=== PATIENT | male | born 1970 | race African-American/Black ===

== ENCOUNTER 2020-05-11 17:34 | Emergency (ER) | payer SELFPAY ==
[~2020-05-11] VITALS: Ht 170.2 cm; Wt 67.1 kg
--- NOTE | 2020-05-11 19:28 | PHYS DOC ---
Past History Past Medical History: Asthma, Bronchitis, Other Additional Past Medical Histor: SEASONAL ALLERGIES Past Surgical History: No Surgical History Additional Smoking Information: PACK/DAY Alcohol Use: Occasionally Adult General Chief Complaint Chief Complaint: COUGH HPI HPI Patient is a age year old male who presents with complaint of cough for 1 month. The patient states that he started getting cough while he was incarcerated. Notes that he has history of asthma and recurrent bronchitis. States that his cough has been productive of whitish phlegm. Denies any fevers. He states that he was placed on prednisone and albuterol while he was incarcerated. Was released 2 weeks ago. Notes that his symptoms have been persistent despite treatment. He denies chest pain or abdominal pain currently. The patient states he did go to an urgent care earlier today and had COVID-19 testing with results pending currently. Denies loss of sense of taste or smell, decreased appetite, body aches, or chills. Review of Systems Review of Systems Constitutional: Denies fever or chills [] Eyes: Denies change in visual acuity, redness, or eye pain [] HENT: Denies nasal congestion or sore throat [] Respiratory: Productive cough, wheezing [] Cardiovascular: Denies chest pain or edema [] GI: Denies abdominal pain, nausea, vomiting, bloody stools or diarrhea [] : Denies dysuria or hematuria [] Musculoskeletal: Denies back pain or joint pain [] Integument: Denies rash or skin lesions [] Neurologic: Denies headache, focal weakness or sensory changes [] All other systems were reviewed and found to be within normal limits, except as documented in this note. Allergies Allergies Allergies Coded Allergies Type Severity Reaction Last Updated Verified No Known Drug Allergies 05/11/20 No Physical Exam Physical Exam Constitutional: Well developed, well nourished, no acute distress, non-toxic appearance. [] HENT: Normocephalic, atraumatic, bilateral external ears normal, oropharynx moist, no oral exudates, nose normal. [] Eyes: PERRLA, EOMI, conjunctiva normal, no discharge. [] Neck: Normal range of motion, no tenderness, supple, no stridor. [] Cardiovascular:Heart rate regular rhythm, no murmur [] Lungs & Thorax: No accessory muscle usage, mild prolonged expiratory phase, expiratory wheezing bilaterally. [] Abdomen: Bowel sounds normal, soft, no tenderness, no masses, no pulsatile masses. [] Skin: Warm, dry, no erythema, no rash. [] Back: No tenderness, no CVA tenderness. [] Extremities: No tenderness, no cyanosis, no clubbing, ROM intact, no edema. [] Neurologic: Alert and oriented X 3, normal motor function, normal sensory function, no focal deficits noted. [] Current Patient Data Vital Signs Vital Signs Date Time Temp Pulse Resp B/P (MAP) Pulse Ox O2 Delivery O2 Flow Rate FiO2 05/11/20 17:50 98.4 84 20 122/100 (107 96 Room Air Lab Results Not performed EKG EKG Not performed [] Radiology/Procedures Radiology/[place] [address] IMAGING REPORT Signed PATIENT: BERNADETTE HSIEH ACCOUNT: [id number] : 1970 LOCATION: ER AGE: 49 SEX: M EXAM STATUS: REG ER ORD. PHYSICIAN: LAMAR PARKER MD REASON: cough PROCEDURE: PORTABLE CHEST 1V INDICATION: Reason: cough / Spl. Instructions: / History: COMPARISON: None. FINDINGS: Frontal views of chest obtained. Hyperexpanded lungs without definite focal airspace consolidation or pulmonary edema. Cardiac silhouette is unremarkable. IMPRESSION: * No focal airspace consolidation or edema. Electronically signed by: Skyler Christian MD (05/11/2020 8:04 PM) [id number] DICTATED AND SIGNED BY: SKYLER CHRISTIAN MD DATE: 05/11/202003 CC: LAMAR PARKER MD; PCP,NO ~ [] Course & Med Decision Making Course & Med Decision Making Pertinent Labs and Imaging studies reviewed. (See chart for details) Patient has had a prior COVID test taken before coming to the emergency department. A COVID test thus was not collected in the emergency department. The patient's chest x-ray shows no consolidating pneumonia. Given chronicity of symptoms however, I do feel that patient will need to be placed on antibiotic therapy for treatment of possible bacterial bronchitis. Patient prescribed albuterol, azithromycin, and prednisone taper. Advise follow-up with primary doctor in the next 3 to 5 days for reevaluation and return to the emergency department for any worsening symptoms. Patient voiced understanding and agreement with treatment plan. ILamar MD, wore N 95 mask, eye protection, gown and gloves during this patient encounter. [] Dragon Disclaimer Dragon Disclaimer This electronic medical record was generated, in whole or in part, using a voice recognition dictation system. Departure Departure: Impression: Primary Impression: Bronchitis Disposition: HOME/RESIDENCE PRIOR TO ADM Condition: STABLE Referrals: PCP,NO (PCP) Patient Instructions: Acute Bronchitis Additional Instructions: Follow-up with your primary care physician in the next 3 to 5 days for reevaluation. Return to the emergency department for any worsening symptoms. Scripts Azithromycin (AZITHROMYCIN TABLET) 250 Mg Tablet 1 PKG PO UD for 5 Days, #6 TAB 0 Refills 2 the first day followed by 1 for days 2-5 Prov: LAMAR PARKER MD 05/11/20 Prednisone (PREDNISONE) 10 Mg Tablet 10 MG PO UD for PREDNISONE TAPER, #39 TAB 0 Refills Take 3 tablets by mouth twice a day for 3 days, then take 2 tablets by mouth twice a day for 3 days, then take 1 tablet by mouth twice a day for 3 days, then take 1 tablet by mouth daily x 3 days, then stop. Prov: LAMAR PARKER MD 05/11/20 Albuterol Sulfate (PROAIR HFA INHALER) 8.5 Gm Hfa.aer.ad 2 PUFF IH PRN Q4-6HRS PRN for wheezing for 21 Days, #1 INHALER 0 Refills Prov: LAMAR PARKER MD 05/11/20 Justification of Admission: Justification of Admission: Justification of Admission Dx: N/A LAMAR PARKER MD May 11, 2020 19:28
--- NOTE | 2020-05-11 20:07 | RAD ---
INDICATION: Reason: cough / Spl. Instructions: / History: COMPARISON: None. FINDINGS: Frontal views of chest obtained. Hyperexpanded lungs without definite focal airspace consolidation or pulmonary edema. Cardiac silhouette is unremarkable. IMPRESSION: * No focal airspace consolidation or edema. Electronically signed by: Cristopher Castro MD (05/11/2020 8:04 PM) [id number]
[2020-05-11 20:32] VITALS: BP 140/77
[2020-05-11] MEDS ORDERED: ALBU2.5V8 IH (20:38)
[2020-05-11] MEDS ORDERED: PRED-220 PO (20:38)
[2020-05-11] MEDS ORDERED: AZIT250T6 PO (20:38)
== END 2020-05-11 20:45 | disposition home or self-care (01) ==
LOC: ER 17:34
DX: J45.909 Unspecified asthma, uncomplicated (principal); F17.200 Nicotine dependence, unspecified, uncomplicated
CPT/HCPCS: 71045; 99285-25

== ENCOUNTER 2020-10-07 10:23 | Emergency (ER) | payer SELFPAY ==
[~2020-10-07] VITALS: Ht 170.2 cm; Wt 57.3 kg
[~2020-10-07 10:23] MED LIST: ALBU2.5V8 IH; AZIT250T6 PO; PRED-220 PO
[2020-10-07 10:33] VITALS: BP 117/76
--- NOTE | 2020-10-07 12:13 | RAD ---
CT Head W/O Contrast: History: nose pain Comparison: none Axial images were obtained without contrast. The rivera and white matter appears normal and symmetrical for the patients age. There is no mass effect, extraaxial fluid collections or hydrocephalus. There is no gross bleed. There is no focal loss of rivera-white matter distinction to suggest acute ischemia, i.e. stroke. Impression: No acute findings. PQRS Compliance Statement: One or more of the following individualized dose reduction techniques were utilized for this examination: 1. Automated exposure control 2. Adjustment of the mA and/or kV according to patient size 3. Use of iterative reconstruction technique CT maxillofacial without contrast History: Nose pain Axial helical images of the face were obtained without contrast. Axial and coronal reconstruction was performed. The nasal septum is mostly midline. The ostiomeatal complexes are occluded bilaterally. There is mucosal thickening present in the bilateral maxillary sinuses and in the anterior ethmoid air cells. Minimal thickening in the frontal sinuses is also noted.. Mastoid air cells are well aerated and the petrous apices are pneumatized.. The visualized osseous structures appear intact. The orbits appear normal. There is asymmetric mucosal thickening in the inferior left turbinate Impression: Extensive mild sinus mucosal thickening with asymmetric thickening of the left inferior turbinate. Recommend correlation with the clinical exam.. PQRS Compliance Statement: One or more of the following individualized dose reduction techniques were utilized for this examination: 1. Automated exposure control 2. Adjustment of the mA and/or kV according to patient size 3. Use of iterative reconstruction technique
[2020-10-07] MEDS ORDERED: AMOX1TAB61 PO (12:48)
--- NOTE | 2020-10-07 12:50 | PHYS DOC ---
Past History Past Medical History: Asthma, Bronchitis, Other Additional Past Medical Histor: SEASONAL ALLERGIES Past Surgical History: No Surgical History Alcohol Use: Occasionally General Adult EDM: Chief Complaint: FACE PROBLEM HPI: HPI: Patient is a [age] year old [sex] who presents with [] Review of Systems: Review of Systems: Constitutional: Denies fever or chills Eyes: Denies change in visual acuity HENT: Denies nasal congestion or sore throat Respiratory: Denies cough or shortness of breath Cardiovascular: Denies chest pain or edema GI: Denies abdominal pain, nausea, vomiting, bloody stools or diarrhea : Denies dysuria Musculoskeletal: Denies back pain or joint pain Integument: Denies rash Neurologic: Denies headache, focal weakness or sensory changes Endocrine: Denies polyuria or polydipsia Lymphatic: Denies swollen glands Psychiatric: Denies depression or anxiety Allergies: Allergies: Allergies Coded Allergies Type Severity Reaction Last Updated Verified No Known Drug Allergies 05/11/20 No Physical Exam: PE: Constitutional: Well developed, well nourished, no acute distress, non-toxic appearance. HENT: Normocephalic, atraumatic, Eyes: EOMI, conjunctiva normal, no discharge. Neck: Normal range of motion, supple, Cardiovascular: S1/2 present, regular rhythm Lungs & Thorax: Speaking in full sentences, bilateral equal chest rise, no tachypnea or increased work of breathing Abdomen: soft, no tenderness, Skin: Warm, dry, no erythema, no rash. [] Back: No tenderness, no CVA tenderness. [] Extremities: No tenderness, no cyanosis, no lower extremity edema Neurologic: Alert and oriented X 3, normal motor function, normal sensory function, no focal deficits noted. [] Psychologic: Affect normal, judgement normal, mood normal. [] Current Patient Data: Vital Signs: Vital Signs Date Time Temp Pulse Resp B/P (MAP) Pulse Ox O2 Delivery O2 Flow Rate FiO2 10/07/20 10:33 97.6 86 18 117/76 (90) 100 Room Air EKG: EKG: [] Radiology/Procedures: Radiology/Procedures: IMAGING REPORT Signed PATIENT: BERNADETTE HSIEH ACCOUNT: [id number] : 1970 LOCATION: ER AGE: 49 SEX: M EXAM STATUS: REG ER ORD. PHYSICIAN: TYLER COPE DO REASON: nose pain PROCEDURE: CT HEAD AND MAXILLOFACIAL WO CT Head W/O Contrast: History: nose pain Comparison: none Axial images were obtained without contrast. The rivera and white matter appears normal and symmetrical for the patients age. There is no mass effect, extraaxial fluid collections or hydrocephalus. There is no gross bleed. There is no focal loss of rivera-white matter distinction to suggest acute ischemia, i.e. stroke. Impression: No acute findings. PQRS Compliance Statement: One or more of the following individualized dose reduction techniques were utilized for this examination: 1. Automated exposure control 2. Adjustment of the mA and/or kV according to patient size 3. Use of iterative reconstruction technique CT maxillofacial without contrast History: Nose pain Axial helical images of the face were obtained without contrast. Axial and coronal reconstruction was performed. The nasal septum is mostly midline. The ostiomeatal complexes are occluded bilaterally. There is mucosal thickening present in the bilateral maxillary sinuses and in the anterior ethmoid air cells. Minimal thickening in the frontal sinuses is also noted.. Mastoid air cells are well aerated and the petrous apices are pneumatized.. The visualized osseous structures appear intact. The orbits appear normal. There is asymmetric mucosal thickening in the inferior left turbinate Impression: Extensive mild sinus mucosal thickening with asymmetric thickening of the left inferior turbinate. Recommend correlation with the clinical exam.. PQRS Compliance Statement: One or more of the following individualized dose reduction techniques were utilized for this examination: 1. Automated exposure control 2. Adjustment of the mA and/or kV according to patient size 3. Use of iterative reconstruction technique DICTATED AND SIGNED BY: LISA PAREKH MD DATE: 10/07/20 1211 CC: PCP,NO; TYLER COPE DO ~MTH0 0 Heart Score: Risk Factors: Risk Factors: DM, Current or recent (<one month) smoker, HTN, HLP, family history of CAD, obesity. Risk Scores: Score 0 - 3: 2.5% MACE over next 6 weeks - Discharge Home Score 4 - 6: 20.3% MACE over next 6 weeks - Admit for Clinical Observation Score 7 - 10: 72.7% MACE over next 6 weeks - Early Invasive Strategies Course & Med Decision Making: Course & Med Decision Making Pertinent Labs and Imaging studies reviewed. (See chart for details) Concern for acute extensive but mild sinusitis - will rx abx and educated to take if sxs persist > 7-10 days. Will discharge home with strict ED return precautions were given for []. Encouraged urgent outpatient follow-up with PMD and ENT. Life-threatening processes were considered but are low suspicion at this time, given history, physical exam and ED workup. Pt was educated on all prescription medications and adverse effects. All patient's questions were answered and pt was stable at time of discharge. Life/limb-threatening differential includes but is not limited to, intracranial hemorrhage, diffuse axonal injury, spinal cord syndrome, unstable cervical fracture or SCIWORA, fractures or joint dislocations, neurovascular injuries, organ injury or laceration, pneumothorax, pneumoperitoneum, pericardial tamponade, unstable pelvic fracture, compartment syndrome, flail chest or respiratory distress, burn injury or asphyxiation I spoken with the patient and her caregivers. I explained the patient's con dition, diagnoses and treatment plan based on the information available to me at this time. I have answered the patient and her caregiver's questions and addressed any concerns. The patient and her caregivers have a good understanding of patient's diagnosis, condition and treatment plan as can be expected at this point. Vital signs have been stable. Patient's condition is stable and appropriate for discharge from the emergency department. Patient will pursue further outpatient evaluation with primary care physician or other designated or consulting physician as outlined in the discharge instructions. The patient and/or caregivers are agreeable to this plan of care and follow-up instructions have been explained in detail. The patient and/or caregivers have received these instructions in written form and have expressed an understanding of the discharge instructions. The patient and/or caregivers are aware that any significant change of condition or worsening of symptoms should prompt immediate return to this or the closest emergency department or call to 911. Abimael Disclaimer: Abimael Disclaimer: This electronic medical record was generated, in whole or in part, using a voice recognition dictation system. Departure Departure: Impression: Primary Impression: Blunt trauma of face Additional Impression: Sinusitis, acute Disposition: 01 DC HOME SELF CARE/HOMELESS Condition: STABLE Referrals: PCP,NO (PCP) FOLLOW UP WITH FAMILY MEDICINE: [employer] [facility], [facility] [address] [address] [place] [facility] [address], Patient Instructions: Nosebleed, Sinusitis Additional Instructions: FOLLOW UP WITH ENT: Antonino Pryor DO [address], [address] [place] [address] [place] [phone] [address] [place] [address] EMERGENCY DEPARTMENT GENERAL DISCHARGE INSTRUCTIONS Thank you for coming to [facility] (ED) today and trusting us with you care. We trust that you had a positivie experience in our Emergency Department. If you wish to speak to the department management, you may call the director at [phone]. YOUR FOLLOW UP INSTRUCTIONS ARE FOLLOWS: 1. Do you have a private Doctor? If you do not have a private doctor, please ask for a resource list of physicians or clinics that may be able to assist you with follow up care. 2. The Emergency Physician has interpreted your x-rays. The X-Ray specialist will also review them. If there is a change in the findings, you will be notified in 48 hours when at all possible. 3. A lab test or culture has been done, your results will be reviewed and you will be notified if you need a change in treatment. ADDITIONAL INSTRUCTIONS AND INFORMATION: 1. Your care today has been supervised by a physician who is specially trained in emergency care. Many problems require more than one evaluation for a complete diagnosis and treatment. We recommend that you schedule your follow up appointment as recommended to ensure complete treatment of you illness or injury. If you are unable to obtain follow up care and continue to have a problem, or if your condition worsens, we recommend that you return to the ED. 2. We are not able to safely determine your condition over the phone nor are we able to give sound medical advice over the phone. For these safety reasons, if you call for medical advice we will ask you to come to the ED for further evaluation. 3. If you have any questions regarding these discharge instructions please call the ED at [phone]. SAFETY INFORMATION: In the interest of safety, wellness, and injury prevention; we encourage you to wear your sealbelt, if you smoke; quite smoking, and we encourage family to use a protective helmet for bicycling and other sporting events that present an increased risk for head injury. IF YOUR SYMPTOMS WORSEN OR NEW SYMPTOMS DEVELOP, OR YOU HAVE CONCERNS ABOUT YOUR CONDITION; OR IF YOUR CONDITION WORSENS WHILE YOU ARE WAITING FOR YOUR FOLLOW UP APPOINT MENT; EITHER CONTACT YOUR PRIMARY CARE DOCTOR, THE PHYSICIAN WHOSE NAME AND NUMBER YOU WERE GIVEN, OR RETURN TO THE ED IMMEDIATELY. Scripts Amoxicillin/Potassium Clav (AUGMENTIN 875-125 TABLET) 1 Each Tablet 1 TAB PO BID for sinusitis for 10 Days, #20 TAB 0 Refills Prov: TYLER COPE DO 10/07/20 TYLER COPE DO Oct 07, 2020 12:50
== END 2020-10-07 13:02 | disposition home or self-care (01) ==
LOC: ER 10:23
DX: S09.90XA Unspecified injury of head, initial encounter (principal); J01.90 Acute sinusitis, unspecified; J34.89 Other specified disorders of nose and nasal sinuses; J45.909 Unspecified asthma, uncomplicated; M54.2 Cervicalgia; X58.XXXA Exposure to other specified factors, initial encounter; Y93.89 Activity, other specified; Y92.89 Other specified places as the place of occurrence of the external cause; Y99.8 Other external cause status
CPT/HCPCS: 70450; 70486; 99285-25